=== PATIENT | female | born 1990 | race African-American/Black ===

== ENCOUNTER 2016-10-12 21:34 | Emergency (ER) | payer OTHER ==
[~2016-10-12] VITALS: Ht 157.5 cm; Wt 40.8 kg
--- NOTE | ~2016-10-12 | EKG ---
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
[~2016-10-12 21:34] MED LIST: CELEXA 10 MG TA10 MG PO; CIPRO500 MG PO; FLAGYL500 MG PO; IBUPROFEN 600600 M1 PO; IBUPROFEN 800800 MG PO; KEPPRA 500 MG500 M1 PO; MACROBID 100 M100 M1 PO; MIRALAX255 GM PO; NOHOMEMEDICATIONS; NORCO 5-325 TA1 EACH PO; ONDANSETRON HCL4 M2 PO; PHENERGAN 25 MG25 M1 PO; PRENATABS RX T1 EACH PO; PROMS25 WY RECTAL; RISPERDAL 1 MG T1 MG PO; VALIUM2 MG PO; VITAMIN B COMP1 EACH; VITAMIN B-1100 M1 PO; VITAMIN D 5050000 I1 PO; XANAX 0.25 MG0.25 MG PO; ZANTAC 150MG T150 MG PO; ZOFRAN ODT4 MG PO
[2016-10-12 21:51] LABS: HEMATOCRIT 39.7 % (37.0-47.0); HEMOGLOBIN 13.1 gm/dL (12.0-15.0); MCH 28.6 pg (26.0-34.0); MCV 86.6 fL (80.0-100.0); RBC 4.59 mil/uL (4.20-5.00); RDW 13.7 % (10.5-14.5); WBC 10.6 thou/uL (4.0-11.0)
[2016-10-12 22:03] LABS: URINE BILIRUBIN NEGATIVE (Negative); URINE BLOOD NEGATIVE (Negative); URINE COLOR YELLOW; URINE GLUCOSE-RANDOM* NEGATIVE (Negative); URINE KETONES NEGATIVE (Negative); URINE LEUKOCYTES-REFLEX NEGATIVE (Negative); URINE PROTEIN (DIPSTICK) TRACE (Negative); URINE SPECIFIC GRAVITY 1.015 (1.003-1.035)
[2016-10-12 22:04] LABS: ALBUMIN 3.8 g/dL (3.4-5.0); DIRECT BILIRUBIN 0.1 mg/dL (<0.1-0.3); TOTAL BILIRUBIN 0.4 mg/dL (<0.1-1.0); TOTAL PROTEIN 7.3 g/dL (6.4-8.2)
[2016-10-12 22:12] LABS: ANION GAP 7 mmol/L (7-16); BUN 12 mg/dL (7-18); CALCIUM 9.2 mg/dL (8.5-10.1); CHLORIDE 105 mmol/L (98-107); CO2 27 mmol/L (21-32); CREATININE 0.9 mg/dL (0.6-1.0); GLUCOSE 95 mg/dL (74-106); POTASSIUM 3.5 mmol/L (3.5-5.1); SODIUM 139 mmol/L (136-145)
[2016-10-12 22:17] LABS: AMP/METHAMP Negative (Negative); BARBITURATES Negative (Negative); BENZODIAZEPINES Negative (Negative); COCAINE Negative (Negative); METHADONE Negative (Negative); OPIATES Negative (Negative); PCP Negative (Negative); THC POSITIVE (Negative)
[2016-10-12 22:21] LABS: TROPONIN-I < 0.04 ng/mL (<0.04-0.07)
[2016-10-12] MEDS ORDERED: NAPROXEN375 MG PO (23:44)
[2016-10-12] MEDS ORDERED: PERCOCET 5-3251 EACH PO (23:44)
[2016-10-12] MEDS ORDERED: ZOFRAN ODT4 MG DISSOLVE (23:44)
== END 2016-10-13 00:16 | disposition home or self-care (01) ==
LOC: ER 21:34
PROVIDERS: Emergency Medicine
DX: K85.90 Acute pancreatitis without necrosis or infection, unspecified (principal); G89.29 Other chronic pain; M54.9 Dorsalgia, unspecified; F15.10 Other stimulant abuse, uncomplicated; Z90.710 Acquired absence of both cervix and uterus; Z90.721 Acquired absence of ovaries, unilateral